=== PATIENT | male | born 1990 | race African-American/Black ===

== ENCOUNTER 2020-11-24 23:41 | Emergency (ER) | payer OTHER ==
[~2020-11-24] VITALS: Ht 182.9 cm; Wt 96.2 kg
[~2020-11-24 23:41] MED LIST: ALBUTEROL2.5 MG/0.1 INH; AUGMENTIN 875875 MG PO; NORCO 5-325 TA1 EACH PO
[2020-11-25 00:59] VITALS: BP 150/73
== END 2020-11-25 01:00 | disposition home or self-care (01) ==
LOC: ER 23:41
DX: S90.02XA Contusion of left ankle, initial encounter (principal); J45.909 Unspecified asthma, uncomplicated; Z79.899 Other long term (current) drug therapy; W22.8XXA Striking against or struck by other objects, initial encounter; Y93.89 Activity, other specified; Y92.89 Other specified places as the place of occurrence of the external cause; Y99.8 Other external cause status